=== PATIENT | female | born 1970 | race African-American/Black ===

== ENCOUNTER 2016-07-04 17:11 | Emergency (ER) | payer OTHER ==
[~2016-07-04] VITALS: Ht 157.5 cm; Wt 93.2 kg
[~2016-07-04 17:11] MED LIST: ALPR0.5T8 PO; AMLO10TA3 PO; CALC500T9 PO; CHOL200025 PO; CLON1PAT TRANSDERM; FELO10TA3 PO; FERR-83 PO; FURO40TA4 PO; KTC2C15 TP; LAMO25TA PO; METO-272 PO; NORT10CA PO; SODI650T PO; TRAM50TA2 PO; TRAZ-118 PO
[2016-07-04 17:33] VITALS: BP 159/92; PULSE 111; RESP 18; O2SAT 99
[2016-07-04 18:57] LABS: APPEARANCE,URINE HAZY (CLEAR,HAZY); COLOR,URINE YELLOW (YELLOW); PH,URINE 7.5 (5.0-8.0)
[2016-07-04 18:58] LABS: OCCULT BLOOD,URINE SMALL (NEGATIVE); UROBILINOGEN,URINE NORMAL (NORMAL)
[2016-07-04 20:14] LABS: BASOPHILS % (AUTO) 0.1 % (0-3); EOSINOPHILS % (AUTO) 1.3 % (0-5); MONOCYTES % (AUTO) 4.4 % (4-12); Mean Corpuscular Hemoglobin 28.8 pg (27.0-35.0); Mean Corpuscular Volume 88.1 fL (81-100); NEUTROPHILS % (AUTO) 81.2 % (40-74); Platelet Count 313 bil/L (150-400)
[2016-07-04 20:26] LABS: Magnesium 1.8 mg/dL (1.6-2.6)
--- NOTE | 2016-07-04 21:07 | ED.REPORT ---
HPI-Abd Pain F 40 and Over Date of Service Jul 04, 2016 ED Provider: Cristiano Carter MD Patient is a 46 year old female with a history of ESRD on dialysis and hypertension who presents to the ED with left sided flank pain onset 2 weeks ago. Patient describes it has a stabbing constant pain. Patient is seen in dialysis on MWF, and she was dialyzed earlier today. Her physicians are aware of her ongoing flank pain. The patient was found to be febrile in the ED at 38.1C, but was not aware of having a fever at home. The patient was diagnosed with a UTI last week, which was treated with Cipro. She denies nausea, vomiting , abdominal pain, hematuria, cough, dysuria, diarrhea, or a history of kidney stones. Nursing Notes Stated Complaint: FLANK PAIN Chief Complaint: Female Abdominal Pain Nursing Notes Reviewed: Yes Allergies: Coded Allergies: amoxicillin (Verified Allergy, Intermediate, Rash,itching, 05/13/15) clavulanic acid (Verified Allergy, Intermediate, Rash, itching, 05/13/15) Scheduled Amlodipine (Amlodipine) 10 Mg Tablet 10 MG PO DAILY Calcium Carbonate (Tums) 500 Mg Tab.chew 500 MG PO BIDWM Cefuroxime Axetil (Cefuroxime) 500 Mg Tablet 500 MG PO DAILY Cholecalciferol (Vitamin D3) (Vitamin D3) 2,000 Unit Tablet 2,000 UNIT PO DAILY Clonidine 0.1 mg/day Patch (Catapres TTS-1) 1 Each Patch 1 PATCH TRANSDERM Weekly,Saturday Felodipine ER (Felodipine ER) 10 Mg Tab.er.24h 10 MG PO DAILY Ferrous Sulfate (Ferrous Sulfate) 325 Mg Tablet 325 MG PO HS Furosemide (Furosemide) 40 Mg Tablet 40 MG PO MORNING Ketoconazole (Ketoconazole) 15 Gm Cream..g. 1 APPLIC TP BID Apply to chest Lamotrigine (Lamotrigine) 25 Mg Tablet 50 MG PO MORNING Metoprolol Succinate ER (Metoprolol Succinate ER) 50 Mg Tab.er.24h 50 MG PO DAILY Nortriptyline (Nortriptyline) 10 Mg Capsule 10 MG PO HS Sodium Bicarbonate (Sodium Bicarbonate) 650 Mg Tablet 650 MG PO DAILY Trazodone (Trazodone) 100 Mg Tablet 100 MG PO HS Scheduled PRN Alprazolam (Alprazolam) 0.5 Mg Tablet 0.5 MG PO TID PRN PRN For Anxiety Tramadol (Tramadol) 50 Mg Tablet 50 MG PO Q6 HOUR PRN PRN For Pain General Time Seen by MD: 21:07 Chief Complaint Flank pain right Hx Obtained From: Patient Arrived By: Walk-in Sudden in Onset?: No Onset Occurred: More than a week ago... (2 weeks) Symptom Duration: Since onset Progression since Onset: Gradually worsening Location: : Flank left Quality: Painful Severity: Current: Moderate Severity: Maximum: Severe Recent Healthcare: No recent hospitalization, Recent doctor visit Similar Sx Previous: Yes Past Medical History Past Medical History Hypertension ESRD CVA (September 2012) Reports: Kidney disease Past Surgical History Tubal ligation Reports: Hysterectomy Family History Noncontributory Smoking History Never Smoker Social History Alcohol Use: Denies alcohol use Drug Use: Denies drug use Other Social History: Good social support, , Local resident Ambulatory Status Independent Review of Systems Constitutional: Reports: Fever Respiratory: Denies: Non-productive cough GI: Denies: Abdominal pain, Diarrhea, Nausea, Vomiting Female: Reports: Flank pain, Denies: Hematuria Complete sys rev & neg: except as marked. Physical Exam Vital Signs Vital Signs (First) Date Time Temp Pulse Resp B/P Pulse Ox O2 Delivery O2 Flow Rate FiO2 07/04/16 17:33 38.1 111 18 159/92 99 07/05/16 00:46 Room Air Initial VS: Reviewed Head / Eyes: Atraumatic, Normocephalic, PERRL ENT: Conjunctiva normal, No scleral icterus Neck: Supple, Full range of motion Extremities: Vascular intact, Neuro intact Skin: Warm, Dry, No cyanosis Neurologic: Alert, Oriented, Nonfocal Psychiatric: Mood/affect normal, Behavior normal, Normal thought content General/Constitutional: Awake, Alert, No acute distress Respiratory / Chest: Breath sounds NL, Breath sounds = bilat, No respiratory distress, No rales, No rhonchi, No wheezing Cardiovascular: Heart rate NL, Regular rhythm, Heart sounds NL, No murmurs Abdomen: Soft Tenderness/Guarding/Rebound: Positive: Tender diffuse Back: Atraumatic Flank / Spine / Paraspinal: Positive: Flank tender L, Negative: Flank tender R Interpretation & Diagnostics Lab Results Interpretation Result Diagram: 07/04/16 1855 07/04/16 185 Test 07/04/16 18:40 07/04/16 18:55 Urine Color Yellow (YELLOW) Urine Appearance Hazy (CLEAR,HAZY) Urine pH 7.5 (5.0-8.0) Urine Specific [place] 1.015 (1.003-1.035) Urine Protein 100mg/dL (NEG,TRACE) Urine Glucose (UA) 100mg/dL (NEGATIVE) Urine Ketones Negativemg/dL (NEGATIVE) Urine Occult Blood Small (NEGATIVE) Urine Nitrite Negative (NEGATIVE) Urine Bilirubin Negative (NEGATIVE) Urine Urobilinogen Normalmg/dL (NORMAL) Urine Leukocyte Esterase Negative (NEGATIVE) Urine RBC 0-2/hpf (0-2) Urine WBC 0-5/hpf (0-5) Urine Epithelial Cells None/hpf (NONE-MOD) Urine Crystals None seen (NONE SEEN) Urine Bacteria Few/hpf (NONE-FEW) Urine Hyaline Casts None/lpf (NONE) Urine Granular Casts None seen (NONE SEEN) Urine Waxy Casts None seen (NONE SEEN) Urine Red Blood Cell Casts None seen (NONE SEEN) Urine White Blood Cell Casts None seen (NONE SEEN) Urine Mucus Present (None Seen) Urine Trichomonas None seen (NONE SEEN) Urine Yeast None (NONE SEEN) Urinalysis Comment None Urine Culture Reflexed Not indicated White Blood Count 8.5th/mm3 (3.8-10.1) Red Blood Count 3.86mil/mm3 (3.90-5.20) Hemoglobin 11.1g/dL (12.0-15.6) Hematocrit 34.0% (35.0-46.0) Mean Corpuscular Volume 88.1fL (81-100) Mean Corpuscular Hemoglobin 28.8pg (27.0-35.0) Mean Corpuscular Hemoglobin Concent 32.6% (32.0-37.0) Red Cell Distribution Width 16.5% (12.3-15.4) Platelet Count 313bil/L (150-400) Neutrophils (%) (Auto) 81.2% (40-74) Lymphocytes (%) (Auto) 12.4% (14-46) Monocytes (%) (Auto) 4.4% (4-12) Eosinophils (%) (Auto) 1.3% (0-5) Basophils (%) (Auto) 0.1% (0-3) Hold Purple Top Tube Received (Received) Hold Blue Top Tube Received (Received) Sodium Level 135mEq/L (134-144) Potassium Level 3.4mEq/L (3.5-5.2) Chloride Level 89mEq/L (97-108) Carbon Dioxide Level 29mmol/L (18-29) Blood Urea Nitrogen 14mg/dL (6-24) Creatinine 4.91mg/dL (0.57-1.00) Estimat Glomerular Filtration Rate 12mL/min (>59) Glucose Level 162mg/dL (60-99) Calcium Level 9.3mg/dL (8.5-10.1) Magnesium Level 1.8mg/dL (1.6-2.6) Total Bilirubin 0.2mg/dL (0.0-1.2) Aspartate Amino Transf (AST/SGOT) 14U/L (0-50) Alanine Aminotransferase (ALT/SGPT) 8U/L (0-32) Alkaline Phosphatase 69U/L (25-150) Total Protein 8.3g/dL (6.4-8.4) Albumin 4.2g/dL (3.4-5.0) Lipase 44U/L (13-60) Hold Red Top Tube Received (Received) Hold [place] Top Tube Received (Received) Hold Gibbs Top Tube Received (Received) CT Abd / Pelvis Interpretation IMPRESSION: 1. No visualized cause of flank pain. Dictated by: Gill Richey M.D. on 07/04/2016 at 22:09 Approved by: Gill Richey M.D. on 07/04/2016 at 22:09 Interpretation / Wet Read by: Interpret - Radiologist Re-Eval/Medical Decision Med Decision/Clinical Course 46-year-old with nonoliguric renal failure, presents with flank pain on the left, mild UTI, and no findings on CAT scan. She just had a course of Cipro, but is again febrile tonight. There is no lung findings and no other findings to explain her fever. She is begun with Ceftin as an alternative with planned follow-up with PCP. Discharged in stable condition for ongoing dialysis as scheduled. Ceftin reduced to once daily after dialysis sessions. Source of Hx: Old records Re-Evaluation/Progress : Time of Eval: 23:37 Patient Status: Condition improved Re-Evaluation/Progress Note: Rechecked the patient to discuss the results of her labs and CT scan. Patient was informed that no acute problem was found. It is believed that her symptoms are due to ongoing UTI, due to fever and exam. Will receive IV abx prior to discharge. Patient understands and agrees with the plan. Discharge instructions and follow-up discussed. All questions were addressed. Return to the ED warnings given. Counseled Regarding: Diagnosis, Lab results, Need for follow-up, When/why to return to ED Discharge & Departure Shift Change Sign-Out Response to Therapy: Improved Primary Impression: UTI (urinary tract infection) Urinary tract infection type: acute cystitis Hematuria presence: without hematuria Qualified Code: N30.00 - Acute cystitis without hematuria Additional Impression: Fever Fever type: unspecified Qualified Code: R50.9 - Fever, unspecified Disposition: Home Discharge Condition All VS Reviewed: Yes Condition: Stable Patient Instructions: Urinary Tract Infection in Women (ED) Additional Instructions: Ceftin one tab daily, after dialysis. Vicodin sparingly if needed for pain. Follow-up with your doctor. Return if any immediate issues. Referrals: Christiane Rodríguez (PCP) Andrea Attestation Portions of this note were transcribed by Anaid June. I, Dr. Carter personally performed the history, physical exam and medical decision-making; I reviewed and confirmed the accuracy of the information in the transcribed note. Signed by: Andrea Enriquez, 07/05/2016 0033 copies to: Christiane Rodríguez Christopher W MD Jul 04, 2016 21:07 Anaid June Jul 04, 2016 21:14
--- NOTE | 2016-07-04 22:10 | DRSVH ---
PROCEDURE: CT ABDOMEN AND PELVIS WITHOUT CONTRAST ([id number]) INDICATIONS: flank pain three weeks recent uti treated TECHNIQUE: Noncontrast 5 mm thick sections acquired from the diaphragms to the symphysis. 5 mm coronal and sagi ttal reformats were then performed. For radiation dose reduction, the following was used: automated exposure control, adjustment of mA and/or kV according to patient size. COMPARISON: , CT, KUB - CT ([facility]), 07/16/2011, 7:53. FINDINGS: Image quality: Excellent. ABDOMEN: Lung bases: Lung bases are clear. Heart size is normal. Solid organs: Liver is enlarged with steatosis. The spleen is normal in size. Gallbladder is unrema rkable. Pancreas is normal in contours. No adrenal nodules. Kidneys are normal in size, without hy dronephrosis or nephrolithiasis. Retroaortic left renal vein is incidentally noted. Peritoneum and bowel: Unenhanced bowel loops demonstrate normal wall thickness and caliber. No free fluid or air. Appendix is unremarkable. Nodes and vessels: No retroperitoneal or mesenteric adenopathy by size criteria. Aorta and inferior vena cava are normal in caliber. Miscellaneous: No ventral hernias. PELVIS: Genitourinary: Bladder wall thickness is normal. Miscellaneous: No inguinal hernias or adenopathy. Bones: No suspicious bony lesions. No vertebral body compression fractures. IMPRESSION: 1. No visualized cause of flank pain. Dictated by: Gill Richey M.D. on 07/04/2016 at 22:09 Approved by: Gill Richey M.D. on 07/04/2016 at 22:09
[2016-07-04] MEDS ORDERED: cefTRIAXone Inj 1,000 MG in IV Premix 1 EACH IV ONE (23:40)
[2016-07-04] MEDS ORDERED: _HYDROcodone/APAP 5-325 mg Tablet PO PRN (23:40)
[2016-07-04] MEDS ORDERED: CEFU500T61 PO (23:43)
[2016-07-05 00:46] VITALS: BP 142/86; PULSE 88; RESP 16; O2SAT 99
== END 2016-07-05 00:47 | disposition home or self-care (01) ==
LOC: SED 17:47
DX: N30.00 Acute cystitis without hematuria (principal); R50.9 Fever, unspecified; I12.0 Hypertensive chronic kidney disease with stage 5 chronic kidney disease or end stage renal disease; N18.6 End stage renal disease; I25.10 Atherosclerotic heart disease of native coronary artery without angina pectoris; Z88.1 Allergy status to other antibiotic agents; Z88.8 Allergy status to other drugs, medicaments and biological substances; Z99.2 Dependence on renal dialysis
CPT/HCPCS: 36415; 74176; 80053; 81000; 81025; 83690; 83735; 85025; 96365; 99285; J0696

== ENCOUNTER 2016-07-29 13:53 | Emergency (ER) | payer OTHER ==
[~2016-07-29] VITALS: Ht 157.5 cm; Wt 90.9 kg
[~2016-07-29 13:53] MED LIST changes: +CEFU500T61 PO
[2016-07-29 13:57] VITALS: BP 125/84; PULSE 93; RESP 12; O2SAT 100
[2016-07-29 16:23] LABS: EOSINOPHILS % (AUTO) 0.5 % (0-5); MONOCYTES % (AUTO) 17.4 % (4-12); Mean Corpuscular Hemoglobin 28.2 pg (27.0-35.0); Mean Corpuscular Volume 88.5 fL (81-100); NEUTROPHILS % (AUTO) 51.1 % (40-74); Platelet Count 165 bil/L (150-400)
--- NOTE | 2016-07-29 16:53 | ED.REPORT ---
HPI-Abd Pain F 40 and Over Date of Service Jul 29, 2016 ED Provider: Javon Lehman MD A 46 year old female with a history of recent bladder infection and end stage renal disease on dialysis presents to the ED complaining of abdominal cramping and diarrhea. She was prescribed antibiotics for her infection two weeks ago, which she finished two days ago. Her cramping abdominal pain began one week ago , accompanied by fever, nonproductive cough, vomiting, approximately four episodes of watery diarrhea per day. She denies dysuria or back pain. The pt was able to drink today, but was not able to eat anything. Nursing Notes Stated Complaint: LOWER ABDOMINAL CRAMPING Chief Complaint: Female Abdominal Pain Nursing Notes Reviewed: Yes Allergies: Coded Allergies: amoxicillin (Verified Allergy, Intermediate, Rash,itching, 05/13/15) clavulanic acid (Verified Allergy, Intermediate, Rash, itching, 05/13/15) Scheduled Amlodipine (Amlodipine) 10 Mg Tablet 10 MG PO DAILY Calcium Carbonate (Tums) 500 Mg Tab.chew 500 MG PO BIDWM Cefuroxime Axetil (Cefuroxime) 500 Mg Tablet 500 MG PO DAILY Cholecalciferol (Vitamin D3) (Vitamin D3) 2,000 Unit Tablet 2,000 UNIT PO DAILY Clonidine 0.1 mg/day Patch (Catapres TTS-1) 1 Each Patch 1 PATCH TRANSDERM Weekly,Saturday Felodipine ER (Felodipine ER) 10 Mg Tab.er.24h 10 MG PO DAILY Ferrous Sulfate (Ferrous Sulfate) 325 Mg Tablet 325 MG PO HS Furosemide (Furosemide) 40 Mg Tablet 40 MG PO MORNING Ketoconazole (Ketoconazole) 15 Gm Cream..g. 1 APPLIC TP BID Apply to chest Lamotrigine (Lamotrigine) 25 Mg Tablet 50 MG PO MORNING Metoprolol Succinate ER (Metoprolol Succinate ER) 50 Mg Tab.er.24h 50 MG PO DAILY Nortriptyline (Nortriptyline) 10 Mg Capsule 10 MG PO HS Sodium Bicarbonate (Sodium Bicarbonate) 650 Mg Tablet 650 MG PO DAILY Trazodone (Trazodone) 100 Mg Tablet 100 MG PO HS Scheduled PRN Alprazolam (Alprazolam) 0.5 Mg Tablet 0.5 MG PO TID PRN PRN For Anxiety Hydrocodone-Acetaminophen 5-325 mg (Hydrocodone-Acetaminophen 5-325 mg) 1 Each Tablet 1 TABLET PO Q4H PRN PRN For Pain Ondansetron ODT (Zofran ODT) 4 Mg Tablet 4 MG PO Q4H PRN PRN For Nausea Tramadol (Tramadol) 50 Mg Tablet 50 MG PO Q6 HOUR PRN PRN For Pain General Time Seen by MD: 16:30 Chief Complaint Abdominal pain Hx Obtained From: Patient Arrived By: Walk-in Sudden in Onset?: No Onset Occurred: 1 week ago Symptom Duration: Since onset Recent Healthcare: Recent doctor visit, Recent hospitalization Similar Sx Previous: No Past Medical History Past Medical History Hypertension ESRD CVA (September 2012) Reports: Kidney disease Past Surgical History Tubal ligation Reports: Hysterectomy Family History Noncontributory Smoking History Never Smoker Social History Alcohol Use: Denies alcohol use Drug Use: Denies drug use Other Social History: Good social support, , Local resident Ambulatory Status Independent Review of Systems Constitutional: Reports: Fever Respiratory: Reports: Non-productive cough, Denies: Prod cough, clear Cardiovascular: Denies: Chest pain GI: Reports: Abdominal pain, Diarrhea, Nausea, Vomiting Female: Denies: Dysuria Musculoskeletal: Denies: Back pain, Neck pain Complete sys rev & neg: except as marked. Physical Exam Vital Signs Vital Signs (First) Date Time Temp Pulse Resp B/P Pulse Ox O2 Delivery O2 Flow Rate FiO2 07/29/16 13:57 37.4 93 12 125/84 100 Room Air Initial VS: Reviewed General/Constitutional: Awake, Alert Respiratory / Chest: Atraumatic, Breath sounds NL, Breath sounds = bilat, No respiratory distress Cardiovascular: Heart rate NL, Regular rhythm, Heart sounds NL Abdomen: Atraumatic, Soft, Non-tender Back: Atraumatic, Full range of motion Head / Eyes: Atraumatic, Normocephalic, PERRL, EOMI ENT: Atraumatic, Airway patent, Mucous membranes moist Skin: Atraumatic, Color NL, No rash, Warm, Dry Neurologic: Oriented X3, Speech NL, No motor deficits, No sensory deficits Neck: Atraumatic, Supple, Full range of motion Upper Extremity / MS: Atraumatic, Full range of motion Lower Extremity / Pelvis / MS: Atraumatic, Full range of motion Psychiatric: Affect NL, Mood NL Interpretation & Diagnostics Lab Results Interpretation Result Diagram: 07/29/16 1610 07/29/16 1610 Test 07/29/16 14:34 07/29/16 16:10 Urine HCG, Qualitative Negative (Negative) White Blood Count 2.1th/mm3 (3.8-10.1) Red Blood Count 3.47mil/mm3 (3.90-5.20) Hemoglobin 9.8g/dL (12.0-15.6) Hematocrit 30.7% (35.0-46.0) Mean Corpuscular Volume 88.5fL (81-100) Mean Corpuscular Hemoglobin 28.2pg (27.0-35.0) Mean Corpuscular Hemoglobin Concent 31.9% (32.0-37.0) Red Cell Distribution Width 16.4% (12.3-15.4) Platelet Count 165bil/L (150-400) Neutrophils (%) (Auto) 51.1% (40-74) Lymphocytes (%) (Auto) 30.0% (14-46) Monocytes (%) (Auto) 17.4% (4-12) Eosinophils (%) (Auto) 0.5% (0-5) Basophils (%) (Auto) 1.0% (0-3) Sodium Level 131mEq/L (134-144) Potassium Level 3.7mEq/L (3.5-5.2) Chloride Level 89mEq/L (97-108) Carbon Dioxide Level 27mmol/L (18-29) Blood Urea Nitrogen 26mg/dL (6-24) Creatinine 10.28mg/dL (0.57-1.00) Estimat Glomerular Filtration Rate 5mL/min (>59) Glucose Level 96mg/dL (60-99) Calcium Level 9.4mg/dL (8.5-10.1) Magnesium Level 2.2mg/dL (1.6-2.6) Total Bilirubin 0.4mg/dL (0.0-1.2) Aspartate Amino Transf (AST/SGOT) 29U/L (0-50) Alanine Aminotransferase (ALT/SGPT) 20U/L (0-32) Alkaline Phosphatase 43U/L (25-150) Total Protein 7.4g/dL (6.4-8.4) Albumin 4.1g/dL (3.4-5.0) Lipase 40U/L (13-60) Hold Gibbs Top Tube Received (Received) Re-Eval/Medical Decision Med Decision/Clinical Course 46-year-old female end-stage renal disease recent completed and buttocks for UTI presenting with crampy abdominal pain and diarrhea times one week. Nonbloody diarrhea. No vomiting. VSS Patient did not have any diarrheal episodes while she was here in 4 hours. Her labs are unremarkable. Her abdomen was soft and nontender. Suspect her diarrhea may be due to the antibiotics she just completed. She does have a leukopenia which may be as a result of the Ceftin. No acute indication for hospitalization. Stool cultures were ordered but patient unable to have a bowel movement. She was sent home with a hat and will bring back for studies. Discharged home with return precautions regarding any new or worsening abdominal pain or other new or worsening symptoms. Source of Hx: Old records Re-Evaluation/Progress : Time of Eval: 17:52 Patient Status: Condition improved Re-Evaluation/Progress Note: Pt rechecked, who is feeling better. She has not beeen able to have a bowel movement in the ED. The plan for discharge is discussed. The pt understands and agrees with the plan. All questions are addressed at this time. Counseled Regarding: Diagnosis, Lab results, Need for follow-up, When/why to return to ED Discharge & Departure Primary Impression: Abdominal pain Abdominal location: unspecified location Qualified Code: R10.9 - Unspecified abdominal pain Additional Impression: Diarrhea Disposition: Home Discharge Condition All VS Reviewed: Yes Condition: Stable Patient Instructions: Acute Abdominal Pain (ED), Acute Diarrhea (ED) Additional Instructions: Take Mcclure as directed for pain. Do not drink, drive, or consume acetaminophen while taking the Mccl[place]. Bring a stool sample back for analysis. Follow up with your primary care physician for further evaluation. Return to the emergency department if you develop any new or worsening symptoms. Referrals: Christiane Rodríguez (PCP) Andrea Attestation Portions of this note were transcribed by Martita Hall I, Dr. Lehman personally performed the history, physical exam and medical decision-making; I reviewed and confirmed the accuracy of the information in the transcribed note. Signed by: Andrea Darden, 07/29/16 and 18:13. copies to: PendergChristiane bailon Ben M MD Jul 29, 2016 16:53 MARTITA HALL Jul 29, 2016 17:39
[2016-07-29 17:01] LABS: Magnesium 2.2 mg/dL (1.6-2.6)
[2016-07-29] MEDS ORDERED: ONDA4TAB9 PO (17:56)
[2016-07-29] MEDS ORDERED: HYDR-4003 PO (17:56)
[2016-07-29 18:30] VITALS: BP 133/77; PULSE 88; RESP 18; O2SAT 97
== END 2016-07-29 18:31 | disposition home or self-care (01) ==
LOC: SED 13:53
DX: R10.9 Unspecified abdominal pain (principal); R19.7 Diarrhea, unspecified; R50.9 Fever, unspecified; R05 Cough; R11.10 Vomiting, unspecified; I12.0 Hypertensive chronic kidney disease with stage 5 chronic kidney disease or end stage renal disease; N18.6 End stage renal disease; Z99.2 Dependence on renal dialysis; Z86.73 Personal history of transient ischemic attack (TIA), and cerebral infarction without residual deficits; Z88.1 Allergy status to other antibiotic agents; Z88.8 Allergy status to other drugs, medicaments and biological substances

== ENCOUNTER 2016-08-10 08:59 | Emergency (ER) | payer OTHER ==
[~2016-08-10] VITALS: Ht 157.5 cm; Wt 84.1 kg
[~2016-08-10 08:59] MED LIST changes: +HYDR-4003 PO; +ONDA4TAB9 PO
[2016-08-10 09:04] VITALS: PULSE 80; RESP 26; O2SAT 99
[2016-08-10 09:37] LABS: BASOPHILS % (AUTO) 0.2 % (0-3); EOSINOPHILS % (AUTO) 1.5 % (0-5); MONOCYTES % (AUTO) 5.3 % (4-12); Mean Corpuscular Hemoglobin 28.2 pg (27.0-35.0); NEUTROPHILS % (AUTO) 72.4 % (40-74); Platelet Count 368 bil/L (150-400)
[2016-08-10 10:01] LABS: TROPONIN T < 0.010 ug/L (0.0-0.011)
[2016-08-10 10:12] LABS: Magnesium 1.8 mg/dL (1.6-2.6)
--- NOTE | 2016-08-10 10:29 | DRSVH ---
PROCEDURE: X-RAY CHEST ONE VIEW, PORTABLE ([id number]) INDICATIONS: cp TECHNIQUE: One view of the chest was acquired. COMPARISON: [facility], CR, XR CHEST 1VW (PORTABLE), 05/13/2015, 19:29. [facility], CR, XR CHEST 2VW, 04/29/2015, 10:24. FINDINGS: Surgical changes and devices: None. Lungs and pleura: No pleural effusions or pneumothorax. Lungs are clear. Mediastinum: Mediastinal contours appear normal. Heart size is normal. Bones and chest wall: No suspicious bony lesions. Overlying soft tissues appear unremarkable. IMPRESSION: Source of chest pain is not seen. Dictated by: Gideon Juan M.D. on 08/10/2016 at 10:27 Approved by: Gideon Juan M.D. on 08/10/2016 at 10:27
--- NOTE | 2016-08-10 10:32 | ED.REPORT ---
HPI-Chest Pain 40 and Over Date of Service Aug 10, 2016 ED Provider: Javon Lehman MD History of Present Illness: Patient is a 46 y.o. 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 Presents to the ED with one hour of chest pain that began while at dialysis. Pain located at [facility] 3ICS, non radiation, pain began suddenly as brick on chest rated 7/10, pain has been intermittant since onset, deminished to 3/10 and described as light pressure. Assocaited with tingling in both fingers. Pain made worse by nothing, made better by nothing. Denies SOB, nasuea, vomiting, headache, no changes in vision, fever, chills, Patient states that she has had a cough due to an illness for a month. Patient recently had a bladder infection and was placed on antibiotics which she finished week and half ago. Patient stated she had an echo cardioram yesterday. Patient stated that this pain has happened before and it was determined to be non-caridac. Nursing Notes Stated Complaint: CHEST PAIN Chief Complaint: Chest Pain Nursing Notes Reviewed: Yes Allergies: Coded Allergies: amoxicillin (Verified Allergy, Intermediate, Rash,itching, 05/13/15) clavulanic acid (Verified Allergy, Intermediate, Rash, itching, 05/13/15) Scheduled Amlodipine (Amlodipine) 10 Mg Tablet 10 MG PO DAILY Calcium Carbonate (Tums) 500 Mg Tab.chew 500 MG PO BIDWM Cefuroxime Axetil (Cefuroxime) 500 Mg Tablet 500 MG PO DAILY Cholecalciferol (Vitamin D3) (Vitamin D3) 2,000 Unit Tablet 2,000 UNIT PO DAILY Clonidine 0.1 mg/day Patch (Catapres TTS-1) 1 Each Patch 1 PATCH TRANSDERM Weekly,Saturday Felodipine ER (Felodipine ER) 10 Mg Tab.er.24h 10 MG PO DAILY Ferrous Sulfate (Ferrous Sulfate) 325 Mg Tablet 325 MG PO HS Furosemide (Furosemide) 40 Mg Tablet 40 MG PO MORNING Ketoconazole (Ketoconazole) 15 Gm Cream..g. 1 APPLIC TP BID Apply to chest Lamotrigine (Lamotrigine) 25 Mg Tablet 50 MG PO MORNING Metoprolol Succinate ER (Metoprolol Succinate ER) 50 Mg Tab.er.24h 50 MG PO DAILY Nortriptyline (Nortriptyline) 10 Mg Capsule 10 MG PO HS Sodium Bicarbonate (Sodium Bicarbonate) 650 Mg Tablet 650 MG PO DAILY Trazodone (Trazodone) 100 Mg Tablet 100 MG PO HS Scheduled PRN Alprazolam (Alprazolam) 0.5 Mg Tablet 0.5 MG PO TID PRN PRN For Anxiety Hydrocodone-Acetaminophen 5-325 mg (Hydrocodone-Acetaminophen 5-325 mg) 1 Each Tablet 1 TABLET PO Q4H PRN PRN For Pain Ondansetron ODT (Zofran ODT) 4 Mg Tablet 4 MG PO Q4H PRN PRN For Nausea Tramadol (Tramadol) 50 Mg Tablet 50 MG PO Q6 HOUR PRN PRN For Pain General Time Seen by MD: 09:38 Chief Complaint Chest pain Sudden in Onset?: Yes Onset Occurred: 1 - 4 hours ago Context of Onset: Other (dialysis) Symptom Duration: Since onset Location: : Chest right Similar Sx Previous: Yes Past Medical History Past Medical History Hypertension ESRD CVA (September 2012) Reports: Kidney disease Past Surgical History Hystrectomy Tubal ligation Reports: Hysterectomy Family History Noncontributory Smoking History Never Smoker Social History Alcohol Use: Denies alcohol use Drug Use: Denies drug use Other Social History: Good social support, , Local resident Ambulatory Status Independent Physical Exam Initial Vital Signs Vital Signs (First) Date Time Temp Pulse Resp B/P Pulse Ox O2 Delivery O2 Flow Rate FiO2 08/10/16 09:04 36.8 80 26 99 Room Air 08/10/16 15:05 158/88 Initial VS: Reviewed Head / Eyes: Atraumatic, Normocephalic, PERRL ENT: Mucous membranes moist, Conjunctiva normal, No scleral icterus Neck: Supple, Non-tender, Full range of motion Back: No CVA tenderness Lymphatic: No lymphadenopathy Extremities: Vascular intact, Neuro intact, No swelling, No tenderness Skin: Warm, Dry, No cyanosis Neurologic: Alert, Oriented, Nonfocal Psychiatric: Mood/affect normal, Behavior normal, Normal thought content Cardiovascular: Heart rate NL, Regular rhythm, Heart sounds NL, No murmurs, Peripheral circulation NL, Pulses = bilaterally Interpretation & Diagnostics Interpretation & Diagnostics: Past ECHOCARDIOGRAM Interpretation Summary Left ventricular wall thickness is mild-moderately increased. The ejection fraction is estimated to be 50-55%. The left atrium is moderately dilated. There is no significant valvular heart disease. Compared to the prior echo report on 2014, there is no significant change. Electronically signed by: Meño Kramer on Reading Physician:08/09/2016 05:46 PM Lab Results Interpretation Result Diagram: 08/10/16 0925 08/10/16 0913 Test 08/10/16 09:13 08/10/16 09:25 08/10/16 13:00 Sodium Level 137mEq/L (134-144) Potassium Level 3.3mEq/L (3.5-5.2) Chloride Level 92mEq/L (97-108) Carbon Dioxide Level 29mmol/L (18-29) Blood Urea Nitrogen 14mg/dL (6-24) Creatinine 4.65mg/dL (0.57-1.00) Estimat Glomerular Filtration Rate 13mL/min (>59) Glucose Level 107mg/dL (60-99) Calcium Level 9.5mg/dL (8.5-10.1) Magnesium Level 1.8mg/dL (1.6-2.6) Total Bilirubin 0.6mg/dL (0.0-1.2) Aspartate Amino Transf (AST/SGOT) 19U/L (0-50) Alanine Aminotransferase (ALT/SGPT) 16U/L (0-32) Alkaline Phosphatase 48U/L (25-150) Total Protein 7.6g/dL (6.4-8.4) Albumin 4.2g/dL (3.4-5.0) White Blood Count 3.0th/mm3 (3.8-10.1) Red Blood Count 3.54mil/mm3 (3.90-5.20) Hemoglobin 10.0g/dL (12.0-15.6) Hematocrit 31.5% (35.0-46.0) Mean Corpuscular Volume 89.0fL (81-100) Mean Corpuscular Hemoglobin 28.2pg (27.0-35.0) Mean Corpuscular Hemoglobin Concent 31.7% (32.0-37.0) Red Cell Distribution Width 16.2% (12.3-15.4) Platelet Count 368bil/L (150-400) Neutrophils (%) (Auto) 72.4% (40-74) Lymphocytes (%) (Auto) 20.0% (14-46) Monocytes (%) (Auto) 5.3% (4-12) Eosinophils (%) (Auto) 1.5% (0-5) Basophils (%) (Auto) 0.2% (0-3) Troponin T < 0.010ug/L (0.0-0.011) X-Ray Chest Interpretation Chest Xray Interpretation: IMPRESSION: Source of chest pain is not seen. Dictated by: Gideon Juan M.D. on 08/10/2016 at 10:27 Approved by: Gideon Juan M.D. on 08/10/2016 at 10:27 Interpretation / Wet Read by: Interpret - Radiologist Re-Eval/Medical Decision Med Decision/Clinical Course Patient is a 46 y.o. F with onset of right sided chest pain/pressure during dialysis approximatley 1 hour before ED arrival. At time of examination patient stated that her chest pain has improved. Cardiac enzymes are negative, chest XR negative for acute cardiopulmonary disease. Initial work up has shown no signs of ischemic heart disease. Patient VS stable for discharge with close outpatient follow up. Inital Troponin negative Repeat Q4 troponin negative PERC score negative to CTA ACC/AHA CV risk score 3.4% Time of Eval: 13:00 Patient Status: Condition improved Re-Evaluation/Progress Note: Patient recieved nitro patch and morphine together, pain improved. Counseled Regarding: Diagnosis, Lab results, Need for follow-up, When/why to return to ED Discharge & Departure Primary Impression: Chest pain Chest pain type: unspecified Qualified Code: R07.9 - Chest pain, unspecified Additional Impressions: Non-cardiac chest pain Cardiac chest pain Disposition: Home Patient Instructions: Chest Pain (ED) Additional Instructions: During you visit to [facility] Emergency Department we obtained blood work for infectious markers, hemoglobin levels, and electrolytes. We obtained An X-Ray of your chest this showed no signs of heart or lung disease. Lab work showed no signs of acute injury to your heart muscle. All your lab values were within normal limits and your imaging showed no acute processes or abnormalities. Your vital signs were stable and safe for discharge. Do not hesitate to call emergency services or your primary care physician if you experience any of the following. - High unrelenting fevers. - Uncontrolled vomiting. - Severe hypertension. - Syncope or loss of consciousness. - Chest pain that does not resolve with 15 minutes of rest - Sudden awakening at night with shortness of breath and chest pressure - severe shortness of breath. Follow up with your primary care physician in 1 weeks time following your emergency department visit for medication checks and general well-being. Referrals: Christiane Rodríguez (PCP) EDSupervising Provider for APC: Javon Lehman MD Attending Statement I discussed patient with resident. I saw and evaluated patient independently. I agree with plan as above. 46-year-old female history of end-stage renal disease on dialysis presenting with chest pain this morning during dialysis. Negative troponins 2. No EKG changes. No signs of ischemia. Pertinent negative. Heart score is two. Given negative troponins and normal heart score , discussed with patient and she prefers to go home. We will discharge home with follow-up with primary doctor with return precautions. copies to: Christiane Rodríguez AARON J DO Aug 10, 2016 09:52 Javon Lehman MD Aug 10, 2016 15:39
[2016-08-10 15:05] VITALS: BP 158/88; PULSE 92; RESP 18; O2SAT 98
== END 2016-08-10 15:06 | disposition home or self-care (01) ==
LOC: SED 08:59 → EDBD 08:59 → SED 15:06
DX: R07.89 Other chest pain (principal); R05 Cough; I12.0 Hypertensive chronic kidney disease with stage 5 chronic kidney disease or end stage renal disease; N18.6 End stage renal disease; Z86.73 Personal history of transient ischemic attack (TIA), and cerebral infarction without residual deficits; Z99.2 Dependence on renal dialysis; Z87.440 Personal history of urinary (tract) infections; Z88.0 Allergy status to penicillin; Z88.1 Allergy status to other antibiotic agents
CPT/HCPCS: 36415; 71010; 80053; 82948; 83735; 84484; 85025; 93005; 96374; 99285; J2270

== ENCOUNTER 2016-12-30 19:44 | Emergency (ER) | payer OTHER ==
[~2016-12-30] VITALS: Ht 157.5 cm; Wt 91.4 kg
[2016-12-30 19:48] VITALS: BP 168/102; PULSE 80; RESP 15; O2SAT 100
[2016-12-30 21:07] LABS: BASOPHILS % (AUTO) 0.1 % (0-3); EOSINOPHILS % (AUTO) 0 % (0-5); MONOCYTES % (AUTO) 2.5 % (4-12); Mean Corpuscular Volume 85.5 fL (81-100); NEUTROPHILS % (AUTO) 90.8 % (40-74); Platelet Count 343 bil/L (150-400)
--- NOTE | 2016-12-30 21:56 | ED.REPORT ---
HPI-Abd Pain F 40 and Over Date of Service Dec 30, 2016 ED Provider: Alexx Payne MD 46 y/o female with a hx of ESRD (on dialysis MWF), HTN and CVA x2 presents to the ED complaining of worsening vomiting, onset two days ago. Associated sx include chills, abdominal cramping and diarrhea today. She last vomited an hour and a half ago and her last diarrhea episode was just a few minutes ago in the ED. The pt makes urine and is also experiencing mild dysuria. She denies fever, chest pain, SOB, melena, hematochezia and being in contact with someone sick. The pt notes her sx came on after she took a Percocet 2 days ago. She has experienced similar episodes of vomiting before but states the abdominal cramping is new. Nursing Notes Stated Complaint: VOMITING,STOMACH CRAMPS Chief Complaint: Female Abdominal Pain Nursing Notes Reviewed: Yes Allergies: Coded Allergies: amoxicillin (Verified Allergy, Intermediate, Rash,itching, 12/30/16) clavulanic acid (Verified Allergy, Intermediate, Rash, itching, 12/30/16) Scheduled Amlodipine (Amlodipine) 10 Mg Tablet 10 MG PO DAILY Calcium Carbonate (Tums) 500 Mg Tab.chew 500 MG PO BIDWM Cefuroxime Axetil (Cefuroxime) 500 Mg Tablet 500 MG PO DAILY Cholecalciferol (Vitamin D3) (Vitamin D3) 2,000 Unit Tablet 2,000 UNIT PO DAILY Clonidine 0.1 mg/day Patch (Catapres TTS-1) 1 Each Patch 1 PATCH TRANSDERM Weekly,Saturday Felodipine ER (Felodipine ER) 10 Mg Tab.er.24h 10 MG PO DAILY Ferrous Sulfate (Ferrous Sulfate) 325 Mg Tablet 325 MG PO HS Furosemide (Furosemide) 40 Mg Tablet 40 MG PO MORNING Ketoconazole (Ketoconazole) 15 Gm Cream..g. 1 APPLIC TP BID Apply to chest Lamotrigine (Lamotrigine) 25 Mg Tablet 50 MG PO MORNING Metoprolol Succinate ER (Metoprolol Succinate ER) 50 Mg Tab.er.24h 50 MG PO DAILY Nortriptyline (Nortriptyline) 10 Mg Capsule 10 MG PO HS Sodium Bicarbonate (Sodium Bicarbonate) 650 Mg Tablet 650 MG PO DAILY Trazodone (Trazodone) 100 Mg Tablet 100 MG PO HS Scheduled PRN Alprazolam (Alprazolam) 0.5 Mg Tablet 0.5 MG PO TID PRN PRN For Anxiety Hydrocodone-Acetaminophen 5-325 mg (Hydrocodone-Acetaminophen 5-325 mg) 1 Each Tablet 1 TABLET PO Q4H PRN PRN For Pain Ondansetron ODT (Zofran ODT) 4 Mg Tablet 4 MG PO Q4H PRN PRN For Nausea Promethazine (Promethazine) 25 Mg Tablet 25 MG PO Q6H PRN PRN For Nausea Tramadol (Tramadol) 50 Mg Tablet 50 MG PO Q6 HOUR PRN PRN For Pain General Time Seen by MD: 21:53 Chief Complaint Vomiting moderate Hx Obtained From: Patient Arrived By: Walk-in Sudden in Onset?: Yes Onset Occurred: 2 days ago Symptom Duration: Since onset Location: : Diffuse Quality: Cramping Radiation: : Does not radiate Severity: Current: Severe Severity: Maximum: Severe Recent Healthcare: No recent doctor visit Similar Sx Previous: No Past Medical History Past Medical History Hypertension ESRD CVA x2 Reports: Kidney disease Past Surgical History Hystrectomy Tubal ligation Reports: Hysterectomy Family History Noncontributory Smoking History Never Smoker Social History Alcohol Use: Denies alcohol use Drug Use: Denies drug use Other Social History: Good social support, , Local resident Ambulatory Status Independent Review of Systems Constitutional: Reports: Chills, Denies: Fever Respiratory: Denies: Shortness of breath Cardiovascular: Denies: Chest pain GI: Reports: Abdominal pain, Diarrhea, Vomiting, Denies: Hematochezia, Melena Female: Reports: Dysuria (mild) Complete sys rev & neg: except as marked. Physical Exam Vital Signs Vital Signs (First) Date Time Temp Pulse Resp B/P Pulse Ox O2 Delivery O2 Flow Rate FiO2 12/30/16 19:48 36.8 80 15 168/102 100 Initial VS: Reviewed Head / Eyes: Atraumatic, Normocephalic Neck: Supple, Non-tender, Full range of motion Extremities: Vascular intact, Neuro intact, No swelling, No tenderness Skin: Warm, Dry, No cyanosis Neurologic: Alert, Oriented, Nonfocal General/Constitutional: Awake, Alert, Cooperative Respiratory / Chest: Atraumatic, Breath sounds NL, Breath sounds = bilat, No respiratory distress, No rales, No rhonchi, No wheezing Cardiovascular: Heart rate NL, Regular rhythm, Heart sounds NL, No gallop, No murmurs, No rubs No peripheral edema Abdomen: Atraumatic, Soft, No guarding, No rebound Tender diffusely to light touch. Back: Atraumatic, Full range of motion, Painless range of motion Interpretation & Diagnostics Lab Results Interpretation Result Diagram: 12/30/16205412/30/162054 Test 12/30/16 20:55 12/30/16 20:56 12/30/16 21:46 12/30/16 21:57 White Blood Count 13.4th/mm3 (3.8-10.1) Red Blood Count 4.29mil/mm3 (3.90-5.20) Hemoglobin 12.0g/dL (12.0-15.6) Hematocrit 36.7% (35.0-46.0) Mean Corpuscular Volume 85.5fL (81-100) Mean Corpuscular Hemoglobin 28.0pg (27.0-35.0) Mean Corpuscular Hemoglobin Concent 32.7% (32.0-37.0) Red Cell Distribution Width 17.1% (12.3-15.4) Platelet Count 343bil/L (150-400) Neutrophils (%) (Auto) 90.8% (40-74) Lymphocytes (%) (Auto) 6.4% (14-46) Monocytes (%) (Auto) 2.5% (4-12) Eosinophils (%) (Auto) 0% (0-5) Basophils (%) (Auto) 0.1% (0-3) Sodium Level 135mEq/L (134-144) Potassium Level 3.9mEq/L (3.5-5.2) Chloride Level 93mEq/L (97-108) Carbon Dioxide Level 17mmol/L (18-29) Blood Urea Nitrogen 46mg/dL (6-24) Creatinine 11.40mg/dL (0.57-1.00) Estimat Glomerular Filtration Rate 5mL/min (>59) Glucose Level 150mg/dL (60-99) Calcium Level 11.0mg/dL (8.5-10.1) Magnesium Level 2.0mg/dL (1.6-2.6) Total Bilirubin 0.3mg/dL (0.0-1.2) Aspartate Amino Transf (AST/SGOT) 12U/L (0-50) Alanine Aminotransferase (ALT/SGPT) 8U/L (0-32) Alkaline Phosphatase 75U/L (25-150) Total Protein 8.2g/dL (6.4-8.4) Albumin 4.2g/dL (3.4-5.0) Lipase 65U/L (13-60) Hold Gibbs Top Tube Received (Received) Hold Urine Received (Received) Urine Color Yellow (YELLOW) Urine Appearance Clear (CLEAR,HAZY) Urine pH 7.5 (5.0-8.0) Urine Specific [place] 1.015 (1.003-1.035) Urine Protein 100mg/dL (NEG,TRACE) Urine Glucose (UA) 250mg/dL (NEGATIVE) Urine Ketones Negativemg/dL (NEGATIVE) Urine Occult Blood Moderate (NEGATIVE) Urine Nitrite Negative (NEGATIVE) Urine Bilirubin Negative (NEGATIVE) Urine Urobilinogen Normalmg/dL (NORMAL) Urine Leukocyte Esterase Negative (NEGATIVE) Urine RBC 0-2/hpf (0-2) Urine WBC 0-5/hpf (0-5) Urine Epithelial Cells Few/hpf (NONE-MOD) Urine Crystals None seen (NONE SEEN) Urine Bacteria Few/hpf (NONE-FEW) Urine Hyaline Casts None/lpf (NONE) Urine Granular Casts None seen (NONE SEEN) Urine Waxy Casts None seen (NONE SEEN) Urine Red Blood Cell Casts None seen (NONE SEEN) Urine White Blood Cell Casts None seen (NONE SEEN) Urine Mucus None seen (None Seen) Urine Trichomonas None seen (NONE SEEN) Urine Yeast None (NONE SEEN) Urinalysis Comment None Urine Culture Reflexed Not indicated Re-Eval/Medical Decision Source of Hx: Old records Re-Evaluation/Progress : Time of Eval: 23:29 Re-Evaluation/Progress Note: Rechecked pt. Discussed lab results, diagnosis and plan to discharge. Pt understands and agrees with the plan. F/U instructions and RTER warning given. All questions addressed. Counseled Regarding: Diagnosis, Lab results, Need for follow-up, When/why to return to ED Discharge & Departure Primary Impression: Abdominal pain Abdominal location: generalized Qualified Code: R10.84 - Generalized abdominal pain Additional Impressions: Dehydration Vomiting Vomiting type: unspecified Vomiting Intractability: non-intractable Nausea presence: with nausea Qualified Code: R11.2 - Nausea with vomiting, unspecified Diarrhea Diarrhea type: unspecified type Qualified Code: R19.7 - Diarrhea, unspecified Disposition: Home Discharge Condition All VS Reviewed: Yes Condition: Stable Patient Instructions: Acute Abdominal Pain (ED), Gastroenteritis (ED) Additional Instructions: Blood work shows that you have a significant degree of dehydration. Make sure that the dialysis staff are aware of your emergency department visit and hydration status prior to initiating her dialysis tomorrow morning. Unfortunately, we do not have promethazine prepackaged for you to take home tonight but I will give you a prescription to fill tomorrow morning so that you can use it tomorrow if needed. Referrals: Christiane Rodríguez (PCP) Scribe Attestation Portions of this note were transcribed by Bob Mayo. I,, personally performed the history, physical exam and medical decision-making;I reviewed and confirmed the accuracy of the information in the transcribed note. Signed by Andrea Arreola. 12/30/16 23:54 copies to: Christiane Rodríguez Kirk H MD Dec 30, 2016 21:56 Bob Mayo Dec 30, 2016 22:05
[2016-12-30] MEDS ORDERED: 0.9% Sodium Chloride 1,000 ML IV ONE (22:03)
[2016-12-30] MEDS ORDERED: Promethazine Inj 25 MG in 0.9% Sodium Chloride 50 ML IV ONE (22:05)
[2016-12-30] MEDS ORDERED: HYDROmorphone 0.5 mg/0.5 mL iSecure Syringe IVPUSH PRN (22:05)
[2016-12-30 22:24] LABS: APPEARANCE,URINE CLEAR (CLEAR,HAZY); COLOR,URINE YELLOW (YELLOW); OCCULT BLOOD,URINE MODERATE (NEGATIVE); PH,URINE 7.5 (5.0-8.0); UROBILINOGEN,URINE NORMAL (NORMAL)
[2016-12-30] MEDS ORDERED: PROM25TA14 PO (23:38)
[2016-12-30 23:54] VITALS: BP 148/96; PULSE 73; RESP 14; O2SAT 99
== END 2016-12-30 23:44 | disposition home or self-care (01) ==
LOC: SED 19:44
DX: E86.0 Dehydration (principal); R10.84 Generalized abdominal pain; R11.2 Nausea with vomiting, unspecified; R19.7 Diarrhea, unspecified; I12.0 Hypertensive chronic kidney disease with stage 5 chronic kidney disease or end stage renal disease; N18.6 End stage renal disease; Z99.2 Dependence on renal dialysis; Z86.73 Personal history of transient ischemic attack (TIA), and cerebral infarction without residual deficits; Z88.1 Allergy status to other antibiotic agents; Z88.8 Allergy status to other drugs, medicaments and biological substances
CPT/HCPCS: 36415; 80053; 81000; 81025; 83690; 83735; 85025; 96374; 96375; 99284; J1170; J2550; J7030

== ENCOUNTER 2017-02-04 13:02 | Emergency (ER) | payer OTHER ==
[~2017-02-04] VITALS: Ht 157.5 cm; Wt 90.9 kg
[~2017-02-04 13:02] MED LIST changes: +PROM25TA14 PO
[2017-02-04 13:13] VITALS: BP 119/82; PULSE 109; RESP 18; O2SAT 98
[2017-02-04 13:34] LABS: BASOPHILS % (AUTO) 0.2 % (0-3); MONOCYTES % (AUTO) 5.3 % (4-12); Mean Corpuscular Hemoglobin 28.1 pg (27.0-35.0); Mean Corpuscular Volume 87.2 fL (81-100); NEUTROPHILS % (AUTO) 71.7 % (40-74); Platelet Count 303 bil/L (150-400)
[2017-02-04] MEDS ORDERED: HYDROcodone-APAP 5-325 mg Tablet PO ONE (14:55)
--- NOTE | 2017-02-04 15:01 | ED.REPORT ---
HPI-Abd Pain M 40 and Over Date of Service Feb 04, 2017 ED Provider: Tayo Joseph PA-C Robbin is a 46-year-old female with a one-year history of ESRD on dialysis presenting to the emergency Department for chief complaint of abdominal pain. Patient states she has had roughly a month and a half of crampy, intermittent abdominal pain. Today she rates her pain 9 out of 10. She states that it became quite severe as she is undergoing dialysis this morning and she terminated her session early. She presents to the urgent care and was referred to the emergency department. This pain is occasionally associated with vomiting , most recently 3 days ago when she turns 3 episodes of nonbloody nonbilious vomiting. Patient reports a history of hysterectomy, CVA. Patient denies constipation, diarrhea, melena, hematochezia, dysuria, hematuria, fever, shaking chills, vaginal bleeding/discharge, chest pain, shortness of breath. Nursing Notes Stated Complaint: ABDOMINAL PAIN Chief Complaint: Female Abdominal Pain Nursing Notes Reviewed: Yes Allergies: Coded Allergies: amoxicillin (Verified Allergy, Intermediate, Rash,itching, 02/04/17) clavulanic acid (Verified Allergy, Intermediate, Rash, itching, 02/04/17) Scheduled Amlodipine (Amlodipine) 10 Mg Tablet 10 MG PO DAILY Calcium Carbonate (Tums) 500 Mg Tab.chew 500 MG PO BIDWM Cefuroxime Axetil (Cefuroxime) 500 Mg Tablet 500 MG PO DAILY Cholecalciferol (Vitamin D3) (Vitamin D3) 2,000 Unit Tablet 2,000 UNIT PO DAILY Clonidine 0.1 mg/day Patch (Catapres TTS-1) 1 Each Patch 1 PATCH TRANSDERM Weekly,Saturday Felodipine ER (Felodipine ER) 10 Mg Tab.er.24h 10 MG PO DAILY Ferrous Sulfate (Ferrous Sulfate) 325 Mg Tablet 325 MG PO HS Furosemide (Furosemide) 40 Mg Tablet 40 MG PO MORNING Ketoconazole (Ketoconazole) 15 Gm Cream..g. 1 APPLIC TP BID Apply to chest Lamotrigine (Lamotrigine) 25 Mg Tablet 50 MG PO MORNING Metoprolol Succinate ER (Metoprolol Succinate ER) 50 Mg Tab.er.24h 50 MG PO DAILY Nortriptyline (Nortriptyline) 10 Mg Capsule 10 MG PO HS Sodium Bicarbonate (Sodium Bicarbonate) 650 Mg Tablet 650 MG PO DAILY Trazodone (Trazodone) 100 Mg Tablet 100 MG PO HS Scheduled PRN Alprazolam (Alprazolam) 0.5 Mg Tablet 0.5 MG PO TID PRN PRN For Anxiety Hydrocodone-Acetaminophen 5-325 mg (Hydrocodone-Acetaminophen 5-325 mg) 1 Each Tablet 1 TABLET PO Q4H PRN PRN For Pain Ondansetron ODT (Zofran ODT) 4 Mg Tablet 4 MG PO Q4H PRN PRN For Nausea Promethazine (Promethazine) 25 Mg Tablet 25 MG PO Q6H PRN PRN For Nausea Tramadol (Tramadol) 50 Mg Tablet 50 MG PO Q6 HOUR PRN PRN For Pain General Time Seen by MD: 14:40 Chief Complaint Abdominal pain Sudden in Onset?: No Past Medical History Past Medical History Hypertension ESRD CVA x2 Reports: Kidney disease Past Surgical History Hystrectomy Tubal ligation Reports: Hysterectomy Family History Noncontributory Smoking History Never Smoker Social History Alcohol Use: Denies alcohol use Drug Use: Denies drug use Other Social History: Good social support, , Local resident Ambulatory Status Independent Review of Systems Review of Systems Note: Negative unless stated otherwise in history of present illness Physical Exam General: Well appearing, well developed, well nourished, no acute distress. Head: Atraumatic, normocephalic. Eyes: No scleral icterus or injection. No discharge. Vision grossly intact. ENT: Voice clear, hearing grossly intact. Respiratory: Regular rate and rhythm. Breath sounds present, clear to auscultation and equal bilaterally. No respiratory distress. No increased work of breathing, speaks in complete sentences. Cardiovascular: Regular rate and rhythm, without murmur, gallop or rub. No pedal edema. Gastrointestinal: Abdomen with mild diffuse tenderness, without guarding or rebound. Bowel sounds normoactive. Back: Normal to inspection, diffuse lumbar tenderness, mild to moderate CVA tenderness to percussion. Skin: Warm and dry. Legs: DP and PT pulses 2+. Negative pedal edema, calf diameter roughly equal [id number]. Neurological: Grossly nonfocal. Psychological: Alert and oriented. Speech appropriate, linear and logical. Behavior appropriate. Initial Vital Signs Vital Signs (First) Date Time Temp Pulse Resp B/P Pulse Ox O2 Delivery O2 Flow Rate FiO2 02/04/17 13:13 37.2 109 18 119/82 98 Room Air Tachycardia Interpretation & Diagnostics Lab Results Interpretation Result Diagram: 02/04/17 1325 02/04/17 1325 Test 02/04/17 13:25 02/04/17 16:10 White Blood Count 5.1th/mm3 (3.8-10.1) Red Blood Count 3.84mil/mm3 (3.90-5.20) Hemoglobin 10.8g/dL (12.0-15.6) Hematocrit 33.5% (35.0-46.0) Mean Corpuscular Volume 87.2fL (81-100) Mean Corpuscular Hemoglobin 28.1pg (27.0-35.0) Mean Corpuscular Hemoglobin Concent 32.2% (32.0-37.0) Red Cell Distribution Width 16.7% (12.3-15.4) Platelet Count 303bil/L (150-400) Neutrophils (%) (Auto) 71.7% (40-74) Lymphocytes (%) (Auto) 21.6% (14-46) Monocytes (%) (Auto) 5.3% (4-12) Eosinophils (%) (Auto) 1.0% (0-5) Basophils (%) (Auto) 0.2% (0-3) Sodium Level 140mEq/L (134-144) Potassium Level 3.4mEq/L (3.5-5.2) Chloride Level 95mEq/L (97-108) Carbon Dioxide Level 30mmol/L (18-29) Blood Urea Nitrogen 14mg/dL (6-24) Creatinine 5.64mg/dL (0.57-1.00) Estimat Glomerular Filtration Rate 10mL/min (>59) Glucose Level 161mg/dL (60-99) Calcium Level 9.8mg/dL (8.5-10.1) Magnesium Level 2.0mg/dL (1.6-2.6) Total Bilirubin 0.3mg/dL (0.0-1.2) Aspartate Amino Transf (AST/SGOT) 10U/L (0-50) Alanine Aminotransferase (ALT/SGPT) 8U/L (0-32) Alkaline Phosphatase 78U/L (25-150) Total Protein 8.1g/dL (6.4-8.4) Albumin 4.3g/dL (3.4-5.0) Lipase 48U/L (13-60) Hold Gibbs Top Tube Received (Received) Urine Color Straw (YELLOW) Urine Appearance Clear (CLEAR,HAZY) Urine pH 8.5 (5.0-8.0) Urine Specific Traer 1.010 (1.003-1.035) Urine Protein 100mg/dL (NEG,TRACE) Urine Glucose (UA) 250mg/dL (NEGATIVE) Urine Ketones Negativemg/dL (NEGATIVE) Urine Occult Blood Moderate (NEGATIVE) Urine Nitrite Negative (NEGATIVE) Urine Bilirubin Negative (NEGATIVE) Urine Urobilinogen Normalmg/dL (NORMAL) Urine Leukocyte Esterase Negative (NEGATIVE) Urine RBC 3-10/hpf (0-2) Urine WBC 0-5/hpf (0-5) Urine Epithelial Cells Moderate/hpf (NONE-MOD) Urine Crystals None seen (NONE SEEN) Urine Bacteria Few/hpf (NONE-FEW) Urine Hyaline Casts None/lpf (NONE) Urine Granular Casts None seen (NONE SEEN) Urine Waxy Casts None seen (NONE SEEN) Urine Red Blood Cell Casts None seen (NONE SEEN) Urine White Blood Cell Casts None seen (NONE SEEN) Urine Mucus None seen (None Seen) Urine Trichomonas None seen (NONE SEEN) Urine Yeast None (NONE SEEN) Urinalysis Comment None Urine Culture Reflexed Not indicated CT Abd / Pelvis Interpretation PROCEDURE: CT ABDOMEN AND PELVIS WITHOUT CONTRAST ([id number]) INDICATIONS: abdominal pain IMPRESSION: Small bilateral ovarian cysts, no source of current lower abdominal pain found. Interpretation / Wet Read by: Interpret - Radiologist Re-Eval/Medical Decision Med Decision/Clinical Course This is a 46-year-old female with a history of ESRD present emergency department with a chief complaint of one and a half months of crampy intermittent abdominal pain. It worsened this morning as she was undergoing dialysis causing her to terminate her session earlier. Pain is sometimes associated with vomiting, most recently 3 days ago in which she had 4 episodes of nonbloody nonbilious vomiting. She denies other symptoms. He reports a history of hysterectomy. Physical examination reveals diffuse mild abdominal tenderness without rebound as well as bilateral CVA tenderness to percussion. She is mildly tachycardic at 109 during triage. I discussed the case with Dr. Hinds, who recommended a noncontrast abdominal CT. This does not reveal source of the abdominal pain. CBC is negative for leukocytosis per reveals a mild anemia with a hemoglobin of 10.8. CMP reveals hypokalemia at 3.4, hyperchloremia at 95, elevated carbon dioxide at 30, creatinine extremely elevated at 5.64 and glucose is normal nonfasting 161. Urinalysis does not suggest UTI. I discussed the case with , who is familiar with the patient. He cannot think of any issue related to her ESRD that would be contributing to her abdominal pain. This point I am reassured against merely dangerous causes of her abdominal pain including appendicitis, cholecystitis, pancreatitis, perforation, GI bleed, infection. I believe she is stable and safe to be discharged to home. Advise close outpatient follow-up. Provided emergency return precautions. The patient verbalizes understanding of and consented to the plan. Consultation : Referral / Consult Name: Rudy Crenshaw DO Consulted With: Nephrology Call Returned at: 17:04 Note: I reviewed the case with Dr. Grant, who is familiar with the patient. He cannot think of any issue related to her ESRD that would be contributing to her abdominal pain. Discharge & Departure Primary Impression: Abdominal pain Abdominal location: unspecified location Qualified Code: R10.9 - Unspecified abdominal pain Disposition: Home Vital Signs - All Vital Signs Date Time Temp Pulse Resp B/P Pulse Ox O2 Delivery O2 Flow Rate FiO2 02/04/17 17:39 36.7 83 138/ 98 02/04/17 15:55 37.0 89 131/84 98 Room Air 02/04/17 13:13 37.2 109 18 119/82 98 Room Air )( All Prior VS Reviewed: Yes Condition: Stable Patient Instructions: Acute Abdominal Pain (ED) Additional Instructions: Evaluation for abdominal pain in the emergency department includes interview, physical examination, blood work, urinalysis and CT scan, all of which are reassuring that your pain is not caused by an immediately dangerous condition. We believe you are stable and safe to go home. Continue to treat your pain as you have been at home. Eat plenty of fiber and drink plenty of fluids. Follow-up with your primary care provider in the next few days to further assess your symptoms. Return to emergency department for any new or worsening symptoms including fever , increasing abdominal pain or vomiting that does not respond to medication. Referrals: Christiane Rodríguez (PCP) EDSupervising Provider for APC: Alexx Payne MD copies to: Rasheeda Singh MD; Christiane Rodríguez Seth PA-C Feb 04, 2017 15:01
--- NOTE | 2017-02-04 15:51 | DRSVH ---
PROCEDURE: CT ABDOMEN AND PELVIS WITHOUT CONTRAST ([id number]) INDICATIONS: abdominal pain TECHNIQUE: After the administration of oral contrast, 5 mm thick sections acquired from the diaphragms to the sy mphysis. 5 mm coronal and sagittal reformats were performed. For radiation dose reduction, the foll owing was used: automated exposure control, adjustment of mA and/or kV according to patient size. COMPARISON: [facility], CT, CT ABD PELVIS WO CON, 07/04/2016, 21:34. FINDINGS: Image quality: Excellent. ABDOMEN: Lung bases: Lung bases are clear. Heart size is normal. Solid organs: Liver and spleen are normal in size. Gallbladder appears normal. Pancreas is normal in size. No adrenal nodules. Both kidneys are normal in size, without hydronephrosis or nephrolithi asis. Peritoneum and bowel: Bowel loops demonstrate normal wall thickness and caliber. No free fluid or a ir. Nodes and vessels: No retroperitoneal or mesenteric adenopathy by size criteria. Aorta and inferior vena cava are normal in size. Miscellaneous: No ventral hernias. PELVIS: Genitourinary: Bladder wall thickness is normal. Bilateral small water density ovarian cysts incide ntally noted. Miscellaneous: No inguinal hernias or adenopathy. Bones: No suspicious bony lesions. No vertebral body compression fractures. IMPRESSION: Small bilateral ovarian cysts, no source of current lower abdominal pain found. Dictated by: Gideon Juan M.D. on 02/04/2017 at 15:49 Approved by: Gideon Juan M.D. on 02/04/2017 at 15:50
[2017-02-04 15:55] VITALS: BP 131/84; PULSE 89; O2SAT 98
[2017-02-04 16:25] LABS: APPEARANCE,URINE CLEAR (CLEAR,HAZY); COLOR,URINE STRAW (YELLOW); OCCULT BLOOD,URINE MODERATE (NEGATIVE); PH,URINE 8.5 (5.0-8.0)
[2017-02-04 16:26] LABS: UROBILINOGEN,URINE NORMAL (NORMAL)
[2017-02-04 17:39] VITALS: BP_SYST 138; PULSE 83; O2SAT 98
== END 2017-02-04 17:40 | disposition home or self-care (01) ==
LOC: SED 13:02
DX: R10.9 Unspecified abdominal pain (principal); N18.6 End stage renal disease; Z99.2 Dependence on renal dialysis; I12.0 Hypertensive chronic kidney disease with stage 5 chronic kidney disease or end stage renal disease; Z86.73 Personal history of transient ischemic attack (TIA), and cerebral infarction without residual deficits; Z88.1 Allergy status to other antibiotic agents; Z88.8 Allergy status to other drugs, medicaments and biological substances